=== PATIENT | female | born 1990 | race Hispanic/Latino ===

== ENCOUNTER 2018-05-21 08:44 | Emergency (ER) | payer OTHER ==
[2018-05-21 08:47] VITALS: BMI 22.3
[2018-05-21 08:48] VITALS: RESP 18; TEMP 97.4; O2SAT 100
[2018-05-21] MEDS ORDERED: Morphine 4 MG/ML VIAL IVP ONE (09:10)
[2018-05-21] MEDS ORDERED: Morphine 4 MG/ML VIAL ONE (09:14)
--- NOTE | 2018-05-21 09:15 | ED PDOC ---
Lower Extremity Pain/Injury Time Seen by Provider: 05/21/18 09:06 Chief Complaint (Nursing): Lower Extremity Problem/Injury Chief Complaint (Provider): Right ankle pain History Per: Patient History/Exam Limitations: no limitations Onset/Duration Of Symptoms: Mins Current Symptoms Are (Timing): Still Present Additional History Per: Patient Additional Complaint(s): 27yo female, otherwise well, brought in by EMS for evaluation of pain to right ankle s/p injury. Patient states she was walking to her car when she slipped on ice and twisted her ankle "in the opposite direction." Patient is unable to move or bear weight on her ankle. No pain meds prior to arrival. No additional medical complaints. - Ankle/Foot Description Of Injury: Twisted Past Medical History Reviewed: Historical Data, Nursing Documentation, Vital Signs Vital Signs: Last Vital Signs Temp 97.4 F L 05/21/18 08:47 Pulse 62 05/21/18 08:47 Resp 18 05/21/18 08:47 BP 97/52 L 05/21/18 08:47 Pulse Ox 100 05/21/18 08:47 - Medical History PMH: No Chronic Diseases - Surgical History Other surgeries: hand surgery - Family History Family History: States: No Known Family Hx - Living Arrangements Living Arrangements: With Family - Home Medications Home Medications: Ambulatory Orders Medication Instructions Recorded oxyCODONE/Acetaminophen [Percocet 1 tab PO Q4 PRN #15 tab 05/21/18 5/325 mg Tab] - Allergies Allergies/Adverse Reactions: Allergies Allergy/AdvReac Type Severity Reaction Status Date / Time No Known Allergies Allergy Verified 05/21/18 08:53 Review of Systems Musculoskeletal: Positive for: Foot Pain (right ankle pain) Neurological: Negative for: Weakness, Numbness Physical Exam - Reviewed Nursing Documentation Reviewed: Yes Vital Signs Reviewed: Yes - Physical Exam Appears: Positive for: Non-toxic, Uncomfortable Head Exam: Positive for: ATRAUMATIC, NORMAL INSPECTION, NORMOCEPHALIC Skin: Positive for: Normal Color Eye Exam: Positive for: Normal appearance Neck: Positive for: Supple Cardiovascular/Chest: Positive for: Regular Rate, Rhythm Respiratory: Positive for: Normal Breath Sounds Pulses-Dorsalis Pedis (R): 2+ Pulses-Post. Tibialis (R): 2+ Extremity: Positive for: Tenderness (tenderness to right lateral ankle), Capillary Refill (< 2 seconds), Swelling (swelling to right lateral ankle). Negative for: Normal ROM (unable to move right ankle due to pain), Calf Tenderness, Deformity Neurologic/Psych: Positive for: Alert, Oriented. Negative for: Motor/Sensory Deficits - ECG O2 Sat by Pulse Oximetry: 100 (RA) Pulse Ox Interpretation: Normal Medical Decision Making Medical Decision Making: Impression: right ankle injury, rule out fractures, ligament injuries Plan: -- XR Right ankle -- XR Right tib/fib -- Upreg -- Morphine 2mg IV 0918 UPreg negative 0950 Patient reports persistent pain, Morphine 2mg IV ordered 0955 XR reviewed and there is right distal fibular fracture. Call placed to podiatry resident. 0959 Case discussed with podiatry resident who will evaluate patient at bedside. 1030 Podiatry resident at bedside. 1045 XR Right Ankle IMPRESSION: Oblique nondisplaced distal fibular fracture. No soft tissue swelling. Question is raised as to the age of this fracture. XR Right Tib/Fib IMPRESSION: Unremarkable radiographs of the right tibia and fibula. 1200 Patient placed in posterior splint by podiatry resident 1252 Patient instructed on non-weight bearing crutch usage; informed to follow up with Dr. Oneill Scribe Attestation: Documented by Jeni Joyce acting as a scribe for Heather Marcum MD. Provider Attestation: All medical record entries made by the Scribe were at my direction and personally dictated by me. I have reviewed the chart and agree that the record accurately reflects my personal performance of the history, physical exam, medical decision making, and the department course for this patient. I have also personally directed, reviewed, and agree with the discharge instructions and disposition. Disposition - Clinical Impression Clinical Impression: Fibula fracture - Patient ED Disposition Is Patient to be Admitted: No Discussed With : Sloan Oneill Doctor Will See Patient In The: Office Counseled Patient/Family Regarding: Studies Performed, Diagnosis, Need For Followup - Disposition Referrals: Sloan Oneill MD [Staff Provider] - Disposition: Routine/Home Disposition Time: 12:30 Condition: GOOD Additional Instructions: DION SYLVAIN, thank you for letting us take care of you today. Your provider was Heather Marcum MD and you were treated for ANKLE PAIN. The emergency medical care you received today was directed at your acute symptoms. If you were prescribed any medication, please fill it and take as directed. It may take several days for your symptoms to resolve. Return to the Emergency Department if your symptoms worsen, do not improve, or if you have any other problems. Please contact your doctor or call one of the physicians/clinics you have been referred to that are listed on the Patient Visit Information form that is included in your discharge packet. Bring any paperwork you were given at discharge with you along with any medications you are taking to your follow up visit. Our treatment cannot replace ongoing medical care by a primary care provider outside of the emergency department. Thank you for allowing the [facility] team to be part of your care today. If you had an X-Ray or CT scan: A Radiologist will review the ED reading if any change in treatment is needed we will contact you. If you had a blood, urine, or wound culture: It will take several days for the results, if any change in treatment is needed we will contact you. If you had an STI test: It will take 48 hours for the results. Please call after 1 week if you have not heard back. Prescriptions: oxyCODONE/Acetaminophen [Percocet 5/325 mg Tab] 1 tab PO Q4 PRN #15 tab PRN Reason: Pain, Severe (8-10) Instructions: Fibula Fracture Forms: [employer] ([place])
[2018-05-21] MEDS: Morphine 4 MG/ML VIAL IVP STA ×2 (09:59→10:05)
--- NOTE | 2018-05-21 10:39 | RAD ---
Date of service: 05/21/2018 PROCEDURE: Radiographs of the right tibia and fibula. HISTORY: right leg injury COMPARISON: None available TECHNIQUE: Frontal and lateral views obtained. FINDINGS: BONES: No fracture or destructive lesion. JOINT SPACES: Unremarkable. OTHER FINDINGS: None. IMPRESSION: Unremarkable radiographs of the right tibia and fibula.
--- NOTE | 2018-05-21 10:42 | RAD ---
Date of service: 05/21/2018 PROCEDURE: Right Ankle Radiographs. HISTORY: right ankle pain injury COMPARISON: None available. FINDINGS: BONES: There is an oblique nondisplaced distal fibular fracture at the level of the plafond. No other fracture is identified. JOINTS: Normal. No osteoarthritis. Ankle mortise maintained. Talar dome intact SOFT TISSUES: Normal. OTHER FINDINGS: None. IMPRESSION: Oblique nondisplaced distal fibular fracture. No soft tissue swelling. Question is raised as to the age of this fracture.
--- NOTE | 2018-05-21 10:47 | CP.PCM.CON ---
History of Present Illness - History of Present Illness History of Present Illness: Podiatry consult note for Dr. Oneill, 27 yo female seen and evaluated in the ED for right ankle pain. Patient is accompanied by her parents and family. Patient states she was walking to her car this morning and fell and slipped on ice. Stats she remembers her foot turning outwards and was immediately unable to bear weight. States she was brought to the hospital in an ambulance. Patient denies any other pedal complains. 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 denies f/nv/sob. Pmhx: none Pshx: right finger surgery Social history: denies smoking cigarettes, drinks alcohol socially, denies use of illicit drugs allergies: Denies Past Patient History - Past Social History Smoking Status: Never Smoked - PSYCHIATRIC Hx Substance Use: No - SURGICAL HISTORY Hx Surgeries: No Meds Home Medications: Home Medication List Medication Instructions Recorded Confirmed Type oxyCODONE/Acetaminophen [Percocet 1 tab PO Q4 PRN #15 tab 05/21/18 Rx 5/325 mg Tab] Allergies/Adverse Reactions: Allergies Allergy/AdvReac Type Severity Reaction Status Date / Time No Known Allergies Allergy Verified 05/21/18 08:53 Physical Exam - Constitutional Appears: Well - Head Exam Head Exam: ATRAUMATIC, NORMOCEPHALIC - Eye Exam Eye Exam: Normal appearance - Extremities Exam Additional comments: Right lower extremity exam: Vascular: Dp/PT 2/4, CFT <3 secs x 5, TG warm to warm, no erythema noted, min imal edema noted at the distal lateral aspect of the leg. derm: no open lesions, no clinical signs of infection, no ecchymosis noted, minimal edema noted to the distal lateral aspect of the leg neuro: protective sensation intact via ipswich 07/09 ortho: tenderness on palpation to the lateral malleolus, restricted ankle ROM secondary to guarding, no pain on palpation to the gastrocs, no pain on p alpation to the medial aspect of the ankle joint, no pain on palpation to the achilles tendon, no pain on palpation to the base of the fifth metatarsal Results - Vital Signs Recent Vital Signs: Last Vital Signs Temp 97.4 F L 05/21/18 08:47 Pulse 62 05/21/18 08:47 Resp 18 05/21/18 08:47 BP 97/52 L 05/21/18 08:47 Pulse Ox 100 05/21/18 09:59 Assessment & Plan - Assessment and Plan (Free Text) Assessment: 27 yo female seen and evaluated for spiral oblique fracture of the distal right fibular with minimal displacement. Plan: Patient seen and evaluated Chart, labs and vitals reviewed X-rays reviewed; spiral oblique fracture noted of the fibular starting at the level of the ankle joint with no displacement Patient placed in a well padded posterior splint Patient educated on conservative versus surgical treatment and risks and benefits associated with both Patient advised to remain NWB to the RLE Crutches to be dispensed and patient to be crutch trained by the ED Patient to take pain medications prn pain Patient advised to follow up with Dr. Oneill within one week Patient showed verbal understanding Thank you for the consult
[2018-05-21] MEDS ORDERED: Oxycodone/Acetaminophen 5/325 mg Tab PO ONE (12:25)
[2018-05-21 20:11] VITALS: BP 108/60; PULSE 60
== END 2018-05-21 13:08 | disposition home or self-care (01) ==
LOC: H.ER 08:44
DX: S99.911A Unspecified injury of right ankle, initial encounter (principal); W00.0XXA Fall on same level due to ice and snow, initial encounter; Y92.480 Sidewalk as the place of occurrence of the external cause
CPT/HCPCS: 29515; 73590; 73610; 81025; 96374; 96376; 99284; J2270